=== PATIENT | male | born 1985 | race Caucasian/White ===

== ENCOUNTER 2020-06-17 21:13 | Emergency (ER) | payer OTHER, SELFPAY ==
[2020-06-17 21:15] VITALS: BP 132/115; PULSE 89; RESP 16; TEMP 36.6; O2SAT 100; BMI 29.7
--- NOTE | 2020-06-17 21:49 | ED.VISSUMM ---
- ER Visit Summary Date of Service: 06/17/20 Chief Complaint: Left leg pain History of Present Illness: The patient is a 34 M who presents with left leg pain that became worse today. Patient has a history of recent tibial plateau fracture with operative repair. Patient states this was done in [place] at [facility]. Patient states he no longer has any of his postoperative pain medications. Patient states the pain is been consistently getting worse. Patient describes the pain as sharp and stabbing. Patient states the pain is worse with movement. Patient denies any weakness. Patient denies any new injury. Physical Examination: Vital signs are stable. Patient is afebrile. Patient is in no acute distress. Musculoskeletal exam reveals well-healing incisions in the left lower extremity. There are no signs of infection. There is no erythema. There is no discharge or drainage. There is edema and ecchymosis. There is no calf tenderness. There is no thigh tenderness. Strength is 5/5 bilateral in the lower extremities. Extensor mechanism is intact. Range of motion was limited in all motions of the left lower extremity secondary to pain. Pedal pulses are equal bilaterally. Capillary refill is less than 2 seconds in all digits. There are no sensory deficits. Test Results: Trays of the left tib-fib were obtained. There are 4 views. On my interpretation, there is no acute fracture. There is no displacement of the hardware or previous fracture. Surgical tam are in place. Neurologist also interpreted the x-ray and agrees. Emergency Department Course and Treatment: Patient was given a dose of oxycodone here. Patient's OARRS report was reviewed. Patient had a 7-day prescription for Percocet filled 2 days ago. Patient was instructed to continue that as needed for pain. Patient was instructed to follow-up with his primary care physician and orthopedic surgeon as scheduled. Patient understood and was agreeable with the plan. All questions were answered. Disposition: Discharge home Impression: 1. Left leg pain 2. Status post ORIF left tibial plateau fracture This note was generated with [employer] dictation software. It may contain incorrect words, spelling, and punctuation that were not noted in review of the chart prior to signing ED Disposition - Plan for ED Patient: Disposition: Home or Assisted Living Diagnosis: Pain in left lower leg Instructions: ED Fracture, Lower Extremity Referrals: NOT,DEFINED [Primary Care Provider] - 5-7 Days
--- NOTE | 2020-06-17 22:00 | RAD_ITS ---
HISTORY: PT IN [facility] LAST WEEK. SURGERY ON LEG ON May. PAIN NOT CONTROLLED. ADDITIONAL HISTORY: None provided. EXAMINATION/TECHNIQUE: XR Tibia/Fibula 2 Views Left Number of images including paperwork: 4 COMPARISON: None FINDINGS: BONES: Laterally applied plate and multiple screws are present transfixing a fracture of the left lateral tibial plateau. Alignment is near-anatomic. No radiographic evidence of hardware complication. Screw tract noted in the mid tibia. JOINTS: No subluxation. Small to moderate-sized knee joint effusion. SOFT TISSUES: Skin tam and soft tissue edema. RAD/Tibia & Fibula 2 Views IMPRESSION: Lateral tibial plateau fracture status post ORIF. at 2219 Reported and signed by: Soila Lugo MD Electronically Signed: Soila Lugo MD at 22:19 EST Tel , Service support ,
[2020-06-17] MEDS: oxyCODONE 5 MG Tablet PO (23:01)
== END 2020-06-17 23:23 | disposition home or self-care (01) ==
PROVIDERS: Emergency Provider Emergency Medicine
DX: M79.662 Pain in left lower leg (principal); Z98.890 Other specified postprocedural states
CPT/HCPCS: 73590; 99284

== ENCOUNTER 2020-06-21 08:04 | Emergency (ER) | payer OTHER, SELFPAY ==
[2020-06-21 08:04] VITALS: BP 152/84; PULSE 102; RESP 16; TEMP 36.1; O2SAT 100; BMI 28.7
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
--- NOTE | 2020-06-21 08:16 | VDLE_ITS ---
Reason For Study: PAIN LEFT GSV is normal. CFV is compressible, spontaneous, phasic, competent, and demonstrates normal augmentation. FV is compressible, spontaneous, phasic, competent and demonstrates normal augmentation. POP V is compressible, spontaneous, phasic, competent and demonstrates normal augmentation. T/P Trunk is compressible. PTV is compressible. LT PerV is compressible. Interpretation Summary There is no evidence of left lower extremity deep vein thrombosis. Left great saphenous vein appears patent and compressible segmentally. Left groin 3.16 x 1.02 cm lymph node Ordering Physician: Lila Corbin Performed By: Herminia Bangura, SHAUN, RVT
--- NOTE | 2020-06-21 08:18 | ED.VISSUMM ---
- ER Visit Summary Date of Service: 06/21/20 Chief Complaint: Left leg pain History of Present Illness: The patient is a 34 M presenting with left leg pain. Patient had tibial plateau fracture repair at [facility] in [place] on June 10. He is currently on Lovenox. He complains of calf pain. He is concerned about possibility of blood clot. He ran out of his Percocet 3 days ago. Denies any new injury. Denies chest pain or shortness of breath. Denies other complaints. Physical Examination: Vitals are stable. Patient is afebrile. Alert no acute distress. HEENT exam is unremarkable. Neck is supple. Lungs are clear and equal bilaterally. Heart is regular rate and rhythm. Extremities left lower extremity incision clean dry and intact. Tallula intact. No erythema or warmth. Mild calf tenderness. Normal distal pulses. Skin is warm and dry. No focal neurologic deficit. Remainder of exam is unremarkable. Emergency Department Course and Treatment: Venous Doppler shows no evidence of DVT. Patient is advised to follow-up with his orthopedic surgeon. Advised return to ED for worsening complaints. Disposition: Discharge home Impression: Postop check This note was generated with [employer] dictation software. It may contain incorrect words, spelling, and punctuation that were not noted in review of the chart prior to signing ED Disposition - Plan for ED Patient: Instructions: ED Post Op Wound Check, General Referrals: [facility] Doctor,Out of [NON-STAFF] -
--- NOTE | 2020-06-21 08:59 | ED.DEP ---
ED Disposition - Plan for ED Patient: Instructions: ED Post Op Wound Check, General Referrals: [facility],Out of [NON-STAFF] -
== END 2020-06-21 09:06 | disposition home or self-care (01) ==
LOC: ED 08:27
PROVIDERS: Emergency Provider Emergency Medicine
DX: M79.605 Pain in left leg (principal); Z98.890 Other specified postprocedural states; Z79.01 Long term (current) use of anticoagulants
CPT/HCPCS: 93971; 99282